=== PATIENT | male | born 1950 | race Caucasian/White ===

== ENCOUNTER 2019-03-06 14:57 | Inpatient (IN) | payer MEDICARE, OTHER ==
[~2019-03-06] VITALS: Ht 177.8 cm; Wt 89.4 kg
[~2019-03-06 14:57] MED LIST: CELEBREX 200 M200 M1 PO; CLEOCIN HCL150 MG PO; GLUCOPHAGE XR500 M1 PO; TELMISARTAN; ZOCOR20 MG PO
[2019-03-06 15:08] VITALS: BP 148/90
[2019-03-06 15:37] LABS: URINE BLOOD 2+ (Negative); URINE CLARITY CLEAR; URINE COLOR YELLOW; URINE GLUCOSE-RANDOM NEGATIVE (Negative); URINE KETONES 1+ (Negative); URINE LEUKOCYTES-REFLEX NEGATIVE (Negative); URINE NITRITE-REFLEX NEGATIVE (Negative); URINE PROTEIN 2+ (Negative); URINE SPECIFIC GRAVITY >= 1.030 (1.005-1.030); URINE UROBILINOGEN 0.2 E.U./dl (0.2-1.0)
[2019-03-06 15:40] LABS: URINE BILIRUBIN 1+ (Negative)
[2019-03-06 15:41] LABS: ICTOTEST (BILI CONFIRMATORY) Negative (Negative)
[2019-03-06 15:44] LABS: MUCUS 0-3 Light strn/LPF (None Seen); SQUAMOUS 0-3 Few /LPF (0-3)
[2019-03-06 15:45] LABS: BACTERIA-REFLEX 1-9 Few /HPF (None Seen); CRYSTALS None Seen /LPF (None Seen); HYALINE CASTS 0-3 Few /LPF (None Seen); URINE RBC 0-2 Rare /HPF (0-2); URINE WBC-REFLEX 0-5 Rare /HPF (0-5)
[2019-03-06 15:50] LABS: HEMATOCRIT 46.6 % (42.0-52.0); MCH 29.5 pg (26.0-34.0); MCHC 34.4 g/dL (28.0-37.0); MCV 85.7 fL (80.0-100.0); MPV 7.8 fl. (7.2-11.1); NUCLEATED RBCS 0 /100WBC; PLATELET COUNT* 219 thou/uL (150-400); RBC 5.44 mil/uL (4.50-6.00); RDW-CV 14.1 % (10.5-14.5); WBC 18.6 thou/uL (4.0-11.0)
[2019-03-06 16:02] LABS: ANION GAP 8 mmol/L (7-16); BUN 10 mg/dL (7-18); CALCIUM 8.8 mg/dL (8.5-10.1); CHLORIDE 95 mmol/L (98-107); CO2 30 mmol/L (21-32); CREATININE 0.9 mg/dL (0.6-1.3); GLUCOSE 112 mg/dL (70-99); POTASSIUM 4.3 mmol/L (3.5-5.1); SODIUM 133 mmol/L (136-145)
[2019-03-06 16:11] LABS: ALBUMIN 3.5 g/dL (3.4-5.0); ALKALINE PHOSPHATASE 68 U/L (46-116); LIPASE 827 U/L (73-393); SGOT 15 U/L (15-37); SGPT 24 U/L (30-65); TOTAL BILIRUBIN 0.8 mg/dL (<0.1-1.0); TOTAL PROTEIN 7.9 g/dL (6.4-8.2); TROPONIN-I LEVEL <0.06 ng/mL (<0.06)
[2019-03-06 16:19] LABS: ABSOLUTE LYMPHOCYTES 0.7 thou/uL (0.8-5.3); ABSOLUTE MONOCYTES 1.9 thou/uL (0.0-1.2)
[2019-03-06 16:20] LABS: PLATELET ESTIMATE ADEQUATE
[2019-03-06 20:00] VITALS: BP 135/92
[2019-03-06 20:18] VITALS: BP 141/92
[2019-03-07 04:11] LABS: HEMATOCRIT 45.6 % (42.0-52.0); HEMOGLOBIN 15.4 gm/dL (14.0-18.0); MCH 29.3 pg (26.0-34.0); MCHC 33.7 g/dL (28.0-37.0); MCV 86.9 fL (80.0-100.0); MPV 8.6 fl. (7.2-11.1); RBC 5.25 mil/uL (4.50-6.00); RDW-CV 14.1 % (10.5-14.5); WBC 20.5 thou/uL (4.0-11.0)
[2019-03-07 04:14] LABS: ALBUMIN 3.1 g/dL (3.4-5.0); ALKALINE PHOSPHATASE 63 U/L (46-116); ANION GAP 7 mmol/L (7-16); BUN 12 mg/dL (7-18); CALCIUM 8.8 mg/dL (8.5-10.1); CHLORIDE 97 mmol/L (98-107); CHOLESTEROL 143 mg/dL (<200); CO2 32 mmol/L (21-32); GLUCOSE 107 mg/dL (70-99); HDL CHOLESTEROL 58 mg/dL (>40); LDL CHOLESTEROL 71 mg/dL (<100); SGOT 11 U/L (15-37); SGPT 20 U/L (30-65); SODIUM 136 mmol/L (136-145); TC:HDL 2.5 Ratio (Not establshd); TOTAL BILIRUBIN 0.6 mg/dL (<0.1-1.0); TOTAL PROTEIN 7.5 g/dL (6.4-8.2); TRIGLYCERIDE 70 mg/dL (<150); VLDL 14 mg/dL (<40)
[2019-03-07 04:28] LABS: SERUM ASSESSMENT CLEAR
--- NOTE | 2019-03-07 06:51 | NUR ---
Admission to floor at 2001. He has pancreatitis. Alert and oriented x 4. His abdomen is distended and he states he hasn't h ad a BM since Sunday or Sunday. He hasn't eaten all these days also and was having nausea. Vitals have been stable and he hasn't had any nausea. He's had pain meds x 3. Labs this am has WBC's elevated Dr Arteaga was notified and she ordered an antibiotic which had penicillin in it which he has an allergy to. Dr Arteaga was notified. He has slept well this shift.
[2019-03-07 07:54] LABS: AMP/METHAMP Negative (Negative); BARBITURATES Negative (Negative); BENZODIAZEPINES Negative (Negative); COCAINE Negative (Negative); METHADONE Negative (Negative); OPIATES POSITIVE (Negative); PCP Negative (Negative); THC Negative (Negative)
[2019-03-07 08:10] VITALS: BP 126/84
--- NOTE | 2019-03-07 10:03 | EKG ---
[place] [address] ELECTROCARDIOGRAM REPORT Name: ANGELIKA PEREYRA Room: [address] ADM IN M.R.#: [id number] Admission: 03/06/19 Attend Phys: Jorge Hernandez Discharge: Date of : 52 Report #: [id number] THIS REPORT FOR: //name// [facility] ED Test Date: 2019-03-06 Test Time: 15:52:28 Pat Name: ANGELIKA PEREYRA Department: Room: [facility] Gender: M Supply Chain Technician: CONNIE : 1950 Requested By: Angie Self Order Number: [id number] MD: Moy Nelson Measurements Intervals [place] Rate: 98 P: 14 PA: 190 QRS: -26 QRSD: 92 T: 9 QT: 361 QTc: 461 Interpretive Statements Sinus rhythm Abnormal R-wave progression, late transition Left ventricular hypertrophy Compared to ECG 10/13/2008 23:44:32 No significant changes Electronically Signed On 03-07-2019 10:03:18 CDT by Moy Nelson [email or web address] <ELECTRONICALLY SIGNED> By: Moy Nelson MD, FAC 03/07/19 1003 1552 1552 Moy Nelson MD, [facility] /EPI
--- NOTE | 2019-03-07 15:19 | NUR ---
SW met with pt and pt to complete initial assessment, introduce self, and SW role. Pt alert, oriented, pleasant. Pt lives at home with . Pt did not anticipate any needs at this time and was concentrating on his pain and pain management at this time. Pt does not have any hx of HH or SNF. SW/CM to continue to follow to assist with safe dc planning.
--- NOTE | 2019-03-07 16:54 | NUR ---
PATIENT ALERT AND ORIENTED X 4. VITAL SIGNS STABLE ON ROOM AIR. UP INDEPENDENTLY IN ROOM. IV PATENT WITH FLUIDS INFUSING. PAIN BEING MANAGED WITH IV MEDICATION. DENIES NAUSEA AT THIS TIME. ADVANCED TO CLEAR LIQUIDS, BUT DOESN'T FEEL UP TO HAVING THEM. HOURLY ROUNDS MAINTAINED THROUGHOUT THE SHIFT. CALL LIGHT WITHIN REACH. NURSING WILL CONTINUE TO MONITOR.
[2019-03-07 21:30] VITALS: BP 135/83
--- NOTE | 2019-03-08 06:07 | NUR ---
PATIENT HAS SLEPT WELL THROUGHOUT THE NIGHT. VSS ON RA. NO C/O PAIN. MEDICATIONS GIVEN ORDERED AND CHARTED. PATIENT REMAINS ON CLEAR LIQUID DIET AND TOLERATING WELL. IV IN RIGHT AC-NS@ 100ML/HR. IV ABT'S GIVEN WITHOUT ANY ADVERSE SIDE EFFECTS NOTED. PATIENT INSTRUCTED TO USE CALL LIGHT WHEN NEEDING ASSISTANCE. HOURLY ROUNDS MADE. WILL CONTINUE WITH PLAN OF CARE AND NURSING TO MONITOR.
[2019-03-08 08:50] VITALS: BP 145/82
--- NOTE | 2019-03-08 19:00 | NUR ---
PATIENT PLEASANT AND COOPERATIVE THRU SHIFT. CONVERSANT. PRESENT PERIODICALLY THRU SHIFT. IV FLUIDS INFUSING W/O DIFF. IV CATH SITE NOTED WNL, +BLOOD RETURN. DRSG CHANGED AFTER SHOWER THIS AFTERNOON. AMBULATING IN HALLS W/ STEADY GAIT. DENIES PAIN, STATES MORE DISCOMFORT THAN PAIN. NO N/V. +BM TODAY AFTER SUPPOSITORY GIVEN. SEE MAR. INFORMATION GIVEN ON LOW FAT DIET FROM [facility]. FLU VACCINE GIVEN, VIS GIVEN TO PATIENT. SEE MAR. CALL LIGHT IN REACH. HRLY ROUNDS DONE. ~TJRN
[2019-03-08 20:00] VITALS: BP 143/81
[2019-03-09 04:35] LABS: HEMATOCRIT 41.5 % (42.0-52.0); MCH 29.1 pg (26.0-34.0); MCHC 33.7 g/dL (28.0-37.0); MCV 86.4 fL (80.0-100.0); MPV 7.5 fl. (7.2-11.1); RBC 4.8 mil/uL (4.50-6.00); RDW-CV 14.1 % (10.5-14.5); WBC 11.3 thou/uL (4.0-11.0)
--- NOTE | 2019-03-09 05:05 | NUR ---
ASSUMED CARE OF PT AFTER REPORT AT 1930. PT A&OX4. VSS. PHYSICAL ASSESSMENT COMPLETED AND CHARTED. PT ON RA. PT UPADLIB BASIM RESTROOM. PT DENIES ANY PAIN OR SOA. PT ABLE TO SLEEP WELL ON BED. CALL LIGHT WITHIN REACH.
[2019-03-09 08:40] VITALS: BP 140/80
[2019-03-09] MEDS ORDERED: NORCO 5-325 TA1 EAC1 PO (09:02)
[2019-03-09] MEDS ORDERED: ZOFRAN ODT4 MG DISSOLVE (09:02)
[2019-03-09 10:02] VITALS: BP 143/81
--- NOTE | 2019-03-09 10:25 | NUR ---
PATIENT ALERT AND ORIENTED THRU SHIFT. DENIES PAIN, N/V. PATIENT STATES READY TO GO HOME. IV CATH DISCONTINUED, CATH TIP INTACT, COTTON BALL/TAPE APPLIED TO SITE. DISCHARGE INSTRUCTIONS REVIEWED, PATIENT STATES VERBALLY OF UNDERSTANDING. COPY OF INSTRUCTIONS AND ORIG RX GIVEN TO PATIENT. PATIENT DRESSES INDEP, BELONGINGS GATHERED W/ PATIENT AND UPON LEAVING . PATIENT ESCORTED TO AWAITING VEHICLE PER PEDIS W/ CUBING MACHINE TENDER AND PRESENT. STEADY GAIT NOTED. DENIES OTHER NURSING NEEDS AT THIS TIME. ~TJRN
[2019-03-09 10:37] VITALS: BP 143/81
--- NOTE | 2019-03-14 11:18 | CON ---
[address] [address] CONSULTATION Name: RODDYANGELIKA L Room: [address]R.#: [id number] Admission: 03/06/19 Attend Phys: Jorge Hernandez Discharge: 03/09/19 Date of : 52 Report #: [id number] THIS REPORT FOR: //name// CC: Stoney Arteaga HISTORY OF PRESENT ILLNESS: This is a pleasant 68-year-old male with past medical history of hypertension, diabetes, hyperlipidemia, who is presenting with acute onset epigastric and right upper quadrant abdominal pain since yesterday. The patient reports the pain began yesterday, located in the epigastrium, sharp, radiates to the back. The patient reports the pain is worse on moving and consumption of food or water. Denies any specific relieving factors apart from pain medication. The patient reports the pain has subsided since his initial presentation to the hospital and he denies similar episodes in the past. He also denies prior episodes of jaundice. PAST MEDICAL HISTORY: Significant for hypertension, hyperlipidemia and diabetes. PAST SURGICAL HISTORY: The patient had back surgery, ankle surgery and surgery for deviated nasal septum. SOCIAL HISTORY: The patient denies smoking, alcohol abuse or drug use. FAMILY HISTORY: No family history of colorectal cancer or Goss related neoplasia. REVIEW OF SYSTEMS: A comprehensive 10-point review of systems is negative except for what was mentioned in the HPI. PHYSICAL EXAMINATION: GENERAL: The patient is alert, awake, oriented x 3. HEENT: Pupils are equal, round, reactive to light and accommodation. Mucous membranes are moist. There is no congestion. LUNGS: Clear to auscultation bilaterally. CARDIOVASCULAR: Rate and rhythm regular. S1, S2 present. ABDOMEN: Soft. There is tenderness in the epigastric and right upper quadrant region to deep palpation. EXTREMITIES: Warm, well perfused. No edema. SKIN: Warm and dry. VITAL SIGNS: Temperature 36.9, pulse rate 82, respirations 18, blood pressure 135/83 and 96% on room air. LABORATORY DATA: Hemoglobin 15.4, hematocrit 45.6, platelet count 223, WBC count 20.5. Sodium 136, potassium 5.0, chloride 97, bicarbonate 32, BUN 12, creatinine 1, total bilirubin 0.6, AST 11, ALT 20, alkaline phosphatase 63, lipase 827[place] [address] CONSULTATION Name: ANGELIKA PEREYRA Fidel Room: [address]#: [id number] Admission: 03/06/19 Attend Phys: Jorge Hernandez Discharge: 03/09/19 Date of : 52 Report #: [id number] IMAGIN. Abdomen and pelvis CT performed on . This demonstrates no bile duct dilation, findings consistent with acute pancreatitis, correlated with pancreatic enzymes. Mild ileus. Incidental horseshoe kidney. 2. Abdominal ultrasound: Mild gallbladder sludge, but no evidence of cholelithiasis, gallbladder wall thickening or biliary ductal dilation. ASSESSMENT AND PLAN: A pleasant 68-year-old male presenting with mild acute pancreatitis, possibly secondary to gallbladder sludge. The patient is able to tolerate a soft diet now. His pain is under better control. I would recommend advancing diet as tolerated. I would consult Surgery for interval cholecystectomy. Thank you for this consultation. <ELECTRONICALLY SIGNED> By: Charly Martinez MD 03/14/19 1118 1105 2043Charly Martinez MD /nt
== END 2019-03-09 10:25 | disposition home or self-care (01) | DRG 439 ==
LOC: M.ERS 14:57 → M.ORTHSURG 18:37 → M.TBA-ER 18:37 → M.ORTHSURG 20:01
PROVIDERS: Nurse Practitioner Family; ADMIT Family Medicine
DX: K85.90 Acute pancreatitis without necrosis or infection, unspecified (principal); R65.10 Systemic inflammatory response syndrome (SIRS) of non-infectious origin without acute organ dysfunction; E78.5 Hyperlipidemia, unspecified; K82.8 Other specified diseases of gallbladder; M19.90 Unspecified osteoarthritis, unspecified site; E78.00 Pure hypercholesterolemia, unspecified; E11.9 Type 2 diabetes mellitus without complications; Z79.84 Long term (current) use of oral hypoglycemic drugs; Z88.0 Allergy status to penicillin; Z88.8 Allergy status to other drugs, medicaments and biological substances; Z98.41 Cataract extraction status, right eye; Z98.42 Cataract extraction status, left eye

== ENCOUNTER 2019-04-02 10:20 | Inpatient (IN) | payer MEDICARE, OTHER ==
[~2019-04-02] VITALS: Ht 182.9 cm; Wt 85.9 kg
[~2019-04-02 10:20] MED LIST changes: +NORCO 5-325 TA1 EAC1 PO; +ZOFRAN ODT4 MG DISSOLVE
[2019-04-02 10:27] VITALS: BP 130/94
[2019-04-02 11:26] LABS: ABSOLUTE BASOPHILS 0.1 thou/uL (0.0-0.2); ABSOLUTE EOSINOPHILS 0.2 thou/uL (0.0-0.7); ABSOLUTE LYMPHOCYTES 1.1 thou/uL (0.8-5.3); ABSOLUTE MONOCYTES 0.9 thou/uL (0.0-1.2); BASOPHILS 0.6 %; EOSINOPHILS 1.4 %; HEMOGLOBIN 15.3 gm/dL (14.0-18.0); LYMPHOCYTES 9.9 %; MCH 29.6 pg (26.0-34.0); MCHC 34.1 g/dL (28.0-37.0); MCV 86.7 fL (80.0-100.0); MONOCYTES 8.3 %; MPV 8.6 fl. (7.2-11.1); NUCLEATED RBCS 0 /100WBC; PLATELET COUNT* 146 thou/uL (150-400); POLYS 79.8 %; RBC 5.19 mil/uL (4.50-6.00); RDW-CV 14.4 % (10.5-14.5); WBC 11.3 thou/uL (4.0-11.0)
[2019-04-02 11:34] LABS: CALCIUM 9.6 mg/dL (8.5-10.1); CREATININE 0.9 mg/dL (0.6-1.3); POTASSIUM 4.3 mmol/L (3.5-5.1)
[2019-04-02 11:39] LABS: ALBUMIN 3.7 g/dL (3.4-5.0); TOTAL BILIRUBIN 1.1 mg/dL (<0.1-1.0); TOTAL PROTEIN 7.9 g/dL (6.4-8.2)
[2019-04-02 12:26] LABS: URINE BILIRUBIN NEGATIVE (Negative); URINE BLOOD TRACE (Negative); URINE CLARITY CLEAR; URINE COLOR YELLOW; URINE GLUCOSE-RANDOM NEGATIVE (Negative); URINE KETONES 1+ (Negative); URINE LEUKOCYTES-REFLEX NEGATIVE (Negative); URINE NITRITE-REFLEX NEGATIVE (Negative); URINE PROTEIN NEGATIVE (Negative); URINE SPECIFIC GRAVITY <= 1.005 (1.005-1.030); URINE UROBILINOGEN 0.2 E.U./dl (0.2-1.0)
--- NOTE | 2019-04-02 15:13 | EKG ---
[place] [address] ELECTROCARDIOGRAM REPORT Name: RODDYLATONIA COMERBILLY Parra Room: [place] [address] ADM IN .R.#: [id number] Admission: 04/02/19 Attend Phys: Jocelynn Calloway Discharge: Date of : 52 Report #: [id number] THIS REPORT FOR: //name// [facility] ED Test Date: 2019-04-02 Test Time: 11:39:11 Pat Name: ANGELIKA PEREYRA Department: Room: [facility] Gender: M Svp Research And Strategic Analysis: DEREK : 1950 Requested By: Negrito Paula Order Number: [id number] MD: Ravi More Measurements Intervals [place] Rate: 82 P: 2 NE: 190 QRS: -26 QRSD: 93 T: 1 QT: 379 QTc: 443 Interpretive Statements Sinus rhythm Low voltage, precordial leads Abnormal R-wave progression, early transition Left ventricular hypertrophy Compared to ECG 03/06/2019 15:52:28 Low QRS voltage now present Electronically Signed On 04-02-2019 15:13:22 CDT by Ravi More [email or web address] <ELECTRONICALLY SIGNED> By: Ravi More MD, FAC 04/02/19 1513 1139 1139 Ravi More MD, [facility] /EPI
[2019-04-02 18:32] VITALS: BP 144/87
[2019-04-02 19:32] VITALS: BP 155/85
[2019-04-03 07:45] VITALS: BP 139/85
[2019-04-03 10:42] LABS: HEMATOCRIT 43.2 % (42.0-52.0); HEMOGLOBIN 14.7 gm/dL (14.0-18.0); MCH 29.6 pg (26.0-34.0); MCHC 33.9 g/dL (28.0-37.0); MCV 87.2 fL (80.0-100.0); MPV 8.4 fl. (7.2-11.1); RBC 4.96 mil/uL (4.50-6.00); RDW-CV 14.6 % (10.5-14.5); WBC 8.1 thou/uL (4.0-11.0)
[2019-04-03 11:15] LABS: ALBUMIN 3.3 g/dL (3.4-5.0); CALCIUM 8.6 mg/dL (8.5-10.1); CREATININE 0.8 mg/dL (0.6-1.3); MAGNESIUM 2.4 mg/dL (1.8-2.4); PHOSPHORUS* 2.5 mg/dL (2.5-4.9); POTASSIUM 4.2 mmol/L (3.5-5.1); TOTAL BILIRUBIN 0.7 mg/dL (<0.1-1.0); TOTAL PROTEIN 7.4 g/dL (6.4-8.2)
[2019-04-03 12:48] VITALS: BP 139/85
[2019-04-03 14:10] VITALS: BP 139/85
== END 2019-04-03 13:55 | disposition home or self-care (01) | DRG 391 ==
LOC: M.ERS 10:20 → M.3W 12:57 → M.TBA-ER 12:57 → M.3W 18:55
PROVIDERS: Family Medicine; ADMIT Internal Medicine
DX: K59.00 Constipation, unspecified (principal); K85.90 Acute pancreatitis without necrosis or infection, unspecified; E78.00 Pure hypercholesterolemia, unspecified; E11.9 Type 2 diabetes mellitus without complications; Z98.42 Cataract extraction status, left eye; Z98.41 Cataract extraction status, right eye; Z90.49 Acquired absence of other specified parts of digestive tract; Z88.0 Allergy status to penicillin; Z88.8 Allergy status to other drugs, medicaments and biological substances

== ENCOUNTER → 2020-05-10 | Outpatient (CLI) | payer MEDICARE ==
[~2020-05-10] MED LIST changes: +COLACE100 MG PO; +FLOMAX0.4 MG PO; +LISINOPRIL5 MG PO; +OMEPRAZOLE 20 M20 M1 PO; +ROXICODONE5 MG PO
== END ==
LOC: M.LAB 08:42
PROVIDERS: ATTEND Surgery
DX: Z01.812 Encounter for preprocedural laboratory examination (principal); Z20.828 Contact with and (suspected) exposure to other viral communicable diseases

== ENCOUNTER → 2020-05-13 | Day surgery (SDC) | payer MEDICARE ==
[2020-05-13 06:25] LABS: HEMATOCRIT 50.4 % (42.0-52.0); HEMOGLOBIN 16.8 gm/dL (14.0-18.0); MCH 29.3 pg (26.0-34.0); MCHC 33.4 g/dL (28.0-37.0); MCV 87.7 fL (80.0-100.0); MPV 7.8 fl. (7.2-11.1); RBC 5.75 mil/uL (4.50-6.00); RDW-CV 13.8 % (10.5-14.5); WBC 6.2 thou/uL (4.0-11.0)
[2020-05-13 06:28] LABS: CALCIUM 8.8 mg/dL (8.5-10.1); CREATININE 1.1 mg/dL (0.6-1.3); POTASSIUM 4.7 mmol/L (3.5-5.1)
--- NOTE | 2020-05-13 11:22 | OP ---
[address] [address] OPERATIVE REPORT Name: ANGELIKA PEREYRA Room: [facility]#: [id number] Admission: 05/13/20 Attend Phys: Shalini García DO Discharge: Date of : 52 Report #: [id number] THIS REPORT FOR: //name// cc: Stoney Cook MD, Arthur MD ~ CC: Stoney García DATE OF SERVICE: 05/13/2020 PREPROCEDURE DIAGNOSIS: Left inguinal hernia. POSTPROCEDURE DIAGNOSIS: Left indirect inguinal hernia containing omentum and a cord lipoma. SURGEON: Shalini García DO COSURGEON: Jose Martin Multani, PGY-1. MILK INSPECTOR: Irma Crespo, MS4. PROCEDURE PERFORMED: Left inguinal hernia repair with mesh. ANESTHESIA: LMA and local. ESTIMATED BLOOD LOSS: 5 mL. DRAINS: None. SPECIMENS: Hernia sac with cord lipoma. COMPLICATIONS: None. CONDITION: Stable. DISPOSITION: PACU to home. HISTORY OF PRESENT ILLNESS: The patient is a very pleasant 70-year-old gentleman who presented to my office with complaint of a bulge and pain in his left groin. On physical exam, he had an obvious left inguinal hernia. He was then consented for repair with mesh. Risks discussed included bleeding, infection, pain, scar formation, injury to bowel or bladder, recurrence of the hernia, mesh complications, inability to void, need for further surgery and risks of general anesthesia. The patient understood these risks [place] [address] OPERATIVE REPORT Name: ANGELIKA PEREYRA Room: [facility]#: [id number] Admission: 05/13/20 Attend Phys: Shalini García DO Discharge: Date of : 52 Report #: [id number] DESCRIPTION OF PROCEDURE: The patient was brought to the operating room. He was laid supine on the operating room table. SCDs were placed on bilateral lower extremities. Ancef was given in the perioperative period. General LMA anesthesia was induced by Anesthesia without difficulty. Left groin was prepped and draped in standard sterile fashion. Timeout was performed to verify patient and procedure. I began by marking out the left ASIS and the left pubic tubercle. An incision was marked out between these 2 structures. A 10 mL of 0.5% Marcaine were injected in the area of the planned incision. Incision was made with a 10 blade. Cautery was used for hemostasis. Then, using a combination of blunt and cautery dissection, we dissected down until the external abdominal oblique fascia was identified. Two small veins were encountered during our dissection and were doubly clamped and ligated with a 2-0 silk suture. Weitlaner retractor was placed within the wound. A very large obvious bulge was noted through the external ring. This appeared to be omentum. The external abdominal oblique fascia was elevated between 2 Beth clamps and was gently incised using Metzenbaums, taking care to avoid any underlying structures. Gentle finger blunt dissection was then used on the inferior aspect of the external abdominal oblique fascia, pushing the cord structures towards the middle of the inguinal canal, continued moving in this direction until the pubic tubercle was reached. Blunt dissection on the pubic tubercle, then elevated the cord structures and the hernia. Rose drain was passed under the cord structures and hernia and was placed under gentle traction. Very careful exploration was then taken of the contents of the inguinal canal. We initially identified a fairly large cord lipoma and hernia sac. This was easily dissected free from the cord structures and was traced back to the internal ring. It was quite large and was nonreducible. It was then ligated with a 2-0 silk suture, dissected free using Metzenbaums and handed off for specimen. The cremasteric fibers were then gently stripped from the cord structures and the hernia, moving from the external ring to the internal ring. At that point, we then identified a very large hernia sac running along with the cord structures, which appeared to be a large portion of the patient's omentum. This was carefully freed from the cord structures until the entirety of the hernia sac was from the cord structures. A Rose drain was adjusted and the cord structures were then protected while we continued our dissection. Any fibers holding the hernia sac to the cord structures or the floor of the canal were stripped away until we reached the internal ring. This was clearly an indirect hernia. The defect was quite large. The amount of omentum was at least the size of a baseball, if not larger, but with gentle pressure, we were able to reduce the omentum back into the abdomen. Any remaining adhesions or loose pieces of tissue were stripped away until the internal ring was completely clear. The ProGrip mesh was then brought onto the field and a plug was fashioned. It was then easily deployed into the defect, taking care to make sure that the large portion of the omentum remained completely reduced. The plug provided excellent coverage of the hernia defect and no further signs of any hernia were identified during the remainder of our work. The remainder of the ProGrip mesh was then brought onto the field and an onlay mesh was fashioned. This was initially deployed at the [address] [place] [address] OPERATIVE REPORT Name: ANGELIKA PEREYRA Room: [facility]#: [id number] Admission: 05/13/20 Attend Phys: Shalini García DO Discharge: Date of : 52 Report #: [id number] tubercle, run along the floor of the inguinal canal and then the 2 legs were brought around the internal ring and crossed over our previously deployed mesh. This provided excellent coverage of the floor. The onlay mesh was then sutured into place circumferentially starting at the pubic tubercle with 2 stitches placed medially and laterally and 2 stitches placed where the legs of the mesh crossed. Hemostasis was assured. A 10 mL of 0.5% Marcaine were injected at the pubic tubercle. [place] drain was removed and we verified that the cord structures appeared to be in good position. The external abdominal oblique fascia was then closed with a running 3-0 Vicryl. Wound was then closed in a layered fashion using deep and superficial stitches of 3-0 Vicryl in inverted interrupted fashion. Skin wound was closed with running 4-0 Monocryl. The final 10 mL of 0.5% Marcaine were injected in a block type fashion, one fingerbreadth in front of the ASIS. Wound was then cleansed and covered with Dermabond. The patient was then allowed to awake from anesthesia, was extubated and transported to the recovery room with no further difficulties. Counts were correct x 2 at the conclusion of the case. Binder was placed in the operating room. <ELECTRONICALLY SIGNED> By: Shalini García DO 05/13/20 1122 0959 1026Cjanki García DO /nt
--- NOTE | 2020-05-13 16:40 | EKG ---
[place] [address] ELECTROCARDIOGRAM REPORT Name: ANGELIKA PEREYRA Room: [facility]#: [id number] Admission: 05/13/20 Attend Phys: Shalini García, Discharge: Date of : 52 Date of Service: 05/13/20 0645 Report #: [id number] THIS REPORT FOR: //name// [facility] Test Date: 2020-05-13 Test Time: 06:45:47 Pat Name: ANGELIKA PEREYRA Department: Room: Gender: Supervisor Sleeping Bag Department: [facility] : 1950 Requested By: Shalini García Order Number: [id number] Emelina MD: Ravi More Measurements Intervals [place] Rate: 79 P: 5 FL: 186 QRS: -29 QRSD: 92 T: 19 QT: 375 QTc: 430 Interpretive Statements Sinus rhythm Left ventricular hypertrophy Compared to ECG 04/02/2019 11:39:11 No significant changes Electronically Signed On 05-13-2020 16:40:37 TRUCK HOP by Ravi More [email or web address] <ELECTRONICALLY SIGNED> By: Ravi More MD, [facility] 05/13/20 1640 Ravi More MD, FACC /EPI
--- NOTE | 2020-05-18 17:07 | PATH ---
[facility] [address] [place] [address] PATHOLOGY RPT PROCEDURE Name: ANGELIKA PEREYRA Room: [facility]#: [id number] Admission: 05/13/20 Date of : 52 Discharge: Report #: [id number] Path Case #: [id number] [facility] Accession Number: [id number] . 01 Material submitted: . hernia - LEFT HERNIA SAC WITH CORD LIPOMA. Modifiers: left . 01 Clinical history: . INGUINAL HERNIA, LEFT . 02 Diagnosis: Left hernia sac and cord lipoma: - Mature fat consistent with "cord lipoma". (CARLO:pit 05/18/2020) QTP 05/18/2020 1051 Local . 02 Electronically signed: . Seng Pena MD, Pathologist NPI- [id number] . 01 Gross description: . Received in formalin labeled "Angelika Pereyra, left hernia sac and cord lipoma" is a nickerson-yellow lobulated soft tissue mass measuring 6.5 x 4.5 x 4.3 cm. The external surface is inked black. The specimen is sectioned to reveal a nickerson-yellow homogeneous cut surface without hemorrhage or necrosis. Package Handler sections are submitted in cassettes A1-A3. (SK; 05/15/2020) . Upon second evaluation, no hernia sac is identified within the container. ([facility]; 05/17/2020) SY/[facility] 05/18/2020 1102 Local . 02 Pathologist provided ICD-10: D17.6 . 02 CPT . 141131 Specimen Comment: A courtesy copy of this report has been sent to [phone] Specimen Comment: [phone] Specimen Comment: Report sent to / DR OGLESBY Performed at: [address] [facility] [address] [id number] MD Jos Fernandez MD Phone: [phone] Performed at: [address] [id number] [place] [address] PATHOLOGY RPT PROCEDURE Name: ANGELIKA PEREYRA Room: [facility]#: [id number] Admission: 05/13/20 Date of : 52 Discharge: Report #: [id number] Path Case #: [id number] MD Seng Pena MD Phone: [phone]
== END | disposition home or self-care (01) ==
LOC: M.SUR 05:49
PROVIDERS: ATTEND Surgery
DX: K40.90 Unilateral inguinal hernia, without obstruction or gangrene, not specified as recurrent (principal); D17.6 Benign lipomatous neoplasm of spermatic cord; R10.9 Unspecified abdominal pain; E11.9 Type 2 diabetes mellitus without complications; E78.00 Pure hypercholesterolemia, unspecified; Z98.890 Other specified postprocedural states; Z79.899 Other long term (current) drug therapy; Z88.0 Allergy status to penicillin; Z90.49 Acquired absence of other specified parts of digestive tract; Z98.41 Cataract extraction status, right eye; Z98.42 Cataract extraction status, left eye

== ENCOUNTER 2020-06-07 11:11 | Inpatient (IN) | payer MEDICARE ==
[~2020-06-07] VITALS: Ht 177.8 cm; Wt 91.9 kg
[2020-06-07 11:20] VITALS: BP 147/93
[2020-06-07 11:53] LABS: ABSOLUTE EOSINOPHILS 0.2 thou/uL (0.0-0.7); ABSOLUTE LYMPHOCYTES 0.6 thou/uL (0.8-5.3); ABSOLUTE MONOCYTES 0.5 thou/uL (0.0-1.2); ABSOLUTE NEUTROPHILS 6.6 thou/uL (1.6-8.1); BASOPHILS 0.2 %; EOSINOPHILS 2.7 %; HEMOGLOBIN 15.1 gm/dL (14.0-18.0); LYMPHOCYTES 7.3 %; MCHC 33.6 g/dL (28.0-37.0); MCV 86.3 fL (80.0-100.0); MONOCYTES 5.8 %; MPV 8.1 fl. (7.2-11.1); NUCLEATED RBCS 0 /100WBC; PLATELET COUNT* 163 thou/uL (150-400); RBC 5.21 mil/uL (4.50-6.00); RDW-CV 14.2 % (10.5-14.5); WBC 7.8 thou/uL (4.0-11.0)
[2020-06-07 12:06] LABS: APTT 28.8 Seconds (25.0-31.3); PROTIME 10.9 Seconds (9.20-11.50)
[2020-06-07 12:16] LABS: CALCIUM 8.7 mg/dL (8.5-10.1); CREATININE 1.1 mg/dL (0.6-1.3)
[2020-06-07 12:21] LABS: TOTAL BILIRUBIN 0.9 mg/dL (<0.1-1.0); TOTAL PROTEIN 7.6 g/dL (6.4-8.2)
--- NOTE | 2020-06-07 15:15 | EKG ---
[place] [address] ELECTROCARDIOGRAM REPORT Name: RODDYANGELIKA L Room: [place] [address] ADM IN [facility].#: [id number] Admission: 06/07/20 Attend Phys: Surinder Holland Discharge: Date of : 52 Date of Service: 06/07/20 1151 Report #: [id number] THIS REPORT FOR: //name// [facility] ED Test Date: 2020-06-07 Test Time: 11:51:49 Pat Name: ANGELIKA PEREYRA Department: Room: [facility] Gender: M Registered Nurses: KYLIE : 1950 Requested By: Negrito Paula Order Number: [id number] MD: Ravi More Measurements Intervals [place] Rate: 103 P: 6 FL: 174 QRS: -24 QRSD: 89 T: 24 QT: 341 QTc: 447 Interpretive Statements Sinus tachycardia Probable left atrial enlargement Abnormal R-wave progression, late transition Left ventricular hypertrophy Baseline wander in lead(s) V1,V4 Compared to ECG 05/13/2020 06:45:47 Sinus rate has increased Electronically Signed On 06-07-2020 15:15:33 STUFFED CASING TIER by Ravi More [email or web address] <ELECTRONICALLY SIGNED> By: Ravi More MD, [facility] 06/07/20 1515 1151 1151 Ravi More MD, [facility] /EPI
[2020-06-07 18:00] VITALS: BP 140/88
[2020-06-07 19:50] VITALS: BP 135/90
[2020-06-07 20:00] VITALS: BP 145/82
[2020-06-08] VITALS: BP 124/63; BP 138/80
[2020-06-08 08:00] VITALS: BP 150/81
[2020-06-08 17:00] VITALS: BP 134/67
[2020-06-08 20:12] VITALS: BP 116/57
[2020-06-09 08:00] VITALS: BP 132/78
[2020-06-09 11:53] VITALS: BP 126/77
[2020-06-09 20:00] VITALS: BP 138/84
[2020-06-10] MEDS ORDERED: CEFDINIR300 MG PO (08:34)
[2020-06-10] MEDS ORDERED: PREDNISONE 10 M10 MG PO (08:34)
[2020-06-10 08:40] VITALS: BP 148/77
[2020-06-10 13:16] VITALS: BP 148/77
== END 2020-06-10 14:48 | disposition home or self-care (01) | DRG 177 ==
LOC: M.ERS 11:11 → M.ORTHSURG 13:51 → M.TBA-ER 13:51 → M.ORTHSURG 19:50
PROVIDERS: Family Medicine; ADMIT Internal Medicine; ATTEND Internal Medicine
PROC: XW033E5 Introduction of Remdesivir Anti-infective into Peripheral Vein, Percutaneous Approach, New Technology Group 5 (ICD-10-PCS; principal; 2020-06-07)
DX: U07.1 COVID-19 (principal); J12.89 Other viral pneumonia; J96.01 Acute respiratory failure with hypoxia; J15.6 Pneumonia due to other Gram-negative bacteria; E78.00 Pure hypercholesterolemia, unspecified; E11.9 Type 2 diabetes mellitus without complications; Z98.42 Cataract extraction status, left eye; Z98.41 Cataract extraction status, right eye; Z86.19 Personal history of other infectious and parasitic diseases; Z90.49 Acquired absence of other specified parts of digestive tract; Z88.0 Allergy status to penicillin; Z79.899 Other long term (current) drug therapy

== ENCOUNTER 2020-06-13 11:17 | Inpatient (IN) | payer MEDICARE ==
[~2020-06-13] VITALS: Ht 177.8 cm; Wt 93.4 kg
[~2020-06-13 11:17] MED LIST changes: +CEFDINIR300 MG PO; +PREDNISONE 10 M10 MG PO
[2020-06-13 11:38] VITALS: BP 143/94
[2020-06-13 12:33] LABS: HEMATOCRIT 44.1 % (42.0-52.0); HEMOGLOBIN 14.7 gm/dL (14.0-18.0); MCH 28.9 pg (26.0-34.0); MCHC 33.3 g/dL (28.0-37.0); MPV 7.4 fl. (7.2-11.1); NUCLEATED RBCS 0 /100WBC; PLATELET COUNT* 88 thou/uL (150-400); RBC 5.07 mil/uL (4.50-6.00); RDW-CV 14.3 % (10.5-14.5); WBC 10.2 thou/uL (4.0-11.0)
[2020-06-13 12:42] LABS: CALCIUM 7.8 mg/dL (8.5-10.1); POTASSIUM 4.1 mmol/L (3.5-5.1)
[2020-06-13 12:45] LABS: APTT 23.9 Seconds (25.0-31.3); INR 1.1; PROTIME 11.3 Seconds (9.20-11.50)
[2020-06-13 12:52] LABS: ABSOLUTE EOSINOPHILS 0.2 thou/uL (0.0-0.7); ABSOLUTE LYMPHOCYTES 0.2 thou/uL (0.8-5.3); ABSOLUTE MONOCYTES 0.5 thou/uL (0.0-1.2); ABSOLUTE NEUTROPHILS 9.3 thou/uL (1.6-8.1); PLATELET ESTIMATE ADEQUATE
[2020-06-13 12:53] LABS: ALBUMIN 2.4 g/dL (3.4-5.0); TOTAL BILIRUBIN 0.3 mg/dL (<0.1-1.0); TOTAL PROTEIN 6.8 g/dL (6.4-8.2)
[2020-06-13 18:21] VITALS: BP 180/99
[2020-06-13] MEDS ORDERED: TYLENOL PM EX-1 EACH PO (19:58)
[2020-06-13 20:00] VITALS: BP 176/97
[2020-06-14] VITALS: BP 132/78
[2020-06-14 04:00] VITALS: BP 123/80
--- NOTE | 2020-06-14 04:26 | NUR ---
Patient arrived in room at approx 2110. RN day die engraving supervisor settled patient and got his vital signs completed. RN visited with patient and answered all questions about stay, plan of care. HS medications given as ordered and patient request. No complaints of pain or discomfort noted. carry out clerk assessment completed as charted. Hourly rounding completed.
--- NOTE | 2020-06-14 09:23 | EKG ---
[place] [address] ELECTROCARDIOGRAM REPORT Name: RODDYANGELIKA L Room: [address] IN ..#: [id number] Admission: 06/13/20 Attend Phys: Viviana Quiroz, Discharge: Date of : 52 Date of Service: 06/13/20 1149 Report #: [id number] THIS REPORT FOR: //name// [facility] ED Test Date: 2020-06-13 Test Time: 11:49:53 Pat Name: ANGELIKA PEREYRA Department: Room: [facility] Gender: M Communications Administrator: CCD : 1950 Requested By: Owen Plascencia Order Number: [id number] MD: Moy Nelson Measurements Intervals [place] Rate: 89 P: 18 DE: 154 QRS: -23 QRSD: 95 T: 23 QT: 383 QTc: 467 Interpretive Statements Sinus rhythm Multiple ventricular premature complexes Consider left atrial enlargement Abnormal R-wave progression, early transition Left ventricular hypertrophy Baseline wander in lead(s) V5 Compared to ECG 06/07/2020 11:51:49 Ventricular premature complex(es) now present Sinus tachycardia no longer present Electronically Signed On 06-14-2020 9:22:54 MANAGER INTERMEDIATE by Moy Nelson [email or web address] <ELECTRONICALLY SIGNED> By: Moy Nelson MD, [facility] 06/14/20 0922 1149 1149 Moy Nelson MD, [facility] /EPI
[2020-06-14 10:00] VITALS: BP 150/87
--- NOTE | 2020-06-14 10:08 | NUR ---
CM SPOKE TO THE PT VIA THE HOSPITAL ROOM PHONE TO DISCUSS CM ASSESSMENT THE PT IS CURRENTLY UNDER ENHANCED PRECAUTIONS FOR COVID 19. PT IS A&O, NORMALLY INDEPENDENT WITH ADL'S. PT RESIDES AT HOME WITH SPOUSE. PT USES 0 DME. PT IS CURRENTLY ON 6L O2, BUT DOES NOT USE OXYGEN AT HOME. PT HAS 0 HX OF HH OR SNF. CM WILL REMAIN AVAILABLE TO ASSIST AND DMITRIY WITH D/C PLANNING.
[2020-06-14 15:00] VITALS: BP 112/70
[2020-06-14 18:05] VITALS: BP 148/87
--- NOTE | 2020-06-14 18:45 | NUR ---
RECEIVED REPORT. ASSUMED CARE OF PT AROUND 0730. AM ASSESSMENT AND VITALS COMPLETED CHARTED. MEDS PER EMAR. PT NOW M/S STATUS AND ISOLATION DISCONTINUED PER DR CASON. PT ABLE TO HAVE VISITORS NOW. TOLERATING DIET. ON 5L PER NC. VISITED THIS AFTERNOON. PT ABLE TO TAKE A SHOWER. PT HOPEFUL TO GO HOME TOMMOROW. CALL LIGHT IS WITHIN REACH. HOURLY ROUNDING PERFORMED. LOW FALL RISK PRECAUTIONS IN PLACE.
--- NOTE | 2020-06-15 01:25 | NUR ---
ASSUMED CARE OF PT AT 1900. VSSDenise PEREZ. NO COMPLAINTS OF PAIN. PTS ON 5 LITERS OF O2. PT IS UP AD MERLYN. PT IS IN SINUS RYTHM ON THE TELEMETRY. PT IS RESTING COMFORTABLY IN BED. RESPIRATIONS ARE EVEN AND NONLABORED. WILL CONTINUE TO MONITOR PT.
[2020-06-15 05:14] LABS: HEMATOCRIT 44.6 % (42.0-52.0); HEMOGLOBIN 14.7 gm/dL (14.0-18.0); MCH 28.4 pg (26.0-34.0); MPV 7.8 fl. (7.2-11.1); RBC 5.19 mil/uL (4.50-6.00); RDW-CV 14.5 % (10.5-14.5); WBC 11.3 thou/uL (4.0-11.0)
[2020-06-15 05:39] LABS: ALBUMIN 2.5 g/dL (3.4-5.0); CALCIUM 8.4 mg/dL (8.5-10.1); CREATININE 0.9 mg/dL (0.6-1.3); MAGNESIUM 2.5 mg/dL (1.8-2.4); POTASSIUM 5.1 mmol/L (3.5-5.1); TOTAL BILIRUBIN 0.5 mg/dL (<0.1-1.0); TOTAL PROTEIN 7.1 g/dL (6.4-8.2)
[2020-06-15 08:00] VITALS: BP 158/86
--- NOTE | 2020-06-15 15:35 | NUR ---
RECEIVED REPORT. ASSUMED CARE OF PT AROUND 0730. AM ASSESSMENT AND VITALS COMPLETED CHARTED. MEDS PER EMAR. UNABLE TO WEAN O2, PT HOLDING AT 5L PER NC. INCENTIVE SPIROMETER 10 TIMES AN HOUR, PT DOING WELL WITH IT. UP TO BEDSIDE CHAIR FOR MOST OF SHIFT. IN TO VISIT, ISOLATION WAS DC'D YESTERDAY. PT DENIED PAIN OR DISCOMFORT. PT MADE M/S STATUS. PT TRANSFERED TO ROOM 225, REPORT GIVEN TO DARON SMITH. PT WENT UP TO ROOM 225 IN WITH NURSING STAFF AND ALL BELONGINGS. CAD ENGINEER REMOVED.
[2020-06-15 16:45] VITALS: BP 136/77
--- NOTE | 2020-06-15 18:46 | NUR ---
PT ARRIVED TO FLOOR TRANSFER ABOUT 1530. PT STABLE. M/S STATUS. AD MERLYN. 5LO2.
[2020-06-15 20:00] VITALS: BP 151/99
[2020-06-16] VITALS: BP 127/82
[2020-06-16 04:42] LABS: HEMATOCRIT 43.6 % (42.0-52.0); HEMOGLOBIN 14.3 gm/dL (14.0-18.0); MCH 28.3 pg (26.0-34.0); MCHC 32.9 g/dL (28.0-37.0); RBC 5.06 mil/uL (4.50-6.00); RDW-CV 14.6 % (10.5-14.5); WBC 14.2 thou/uL (4.0-11.0)
[2020-06-16 04:58] LABS: CALCIUM 8.5 mg/dL (8.5-10.1); POTASSIUM 4.8 mmol/L (3.5-5.1)
[2020-06-16 08:00] VITALS: BP 132/94
--- NOTE | 2020-06-16 11:12 | NUR ---
CM INFORMED DURING PRIME ROUNDING OF THE PLAN OF CARE FOR THE PT. PT TRANSFERED FROM COVID UNIT. PT PCR RETURNED COVID NEGATIVE. PLAN FOR PT TO REMAIN INPT FOR 2 MORE DAYS. NO CM D/C PLANNING NEEDS ANTICIPATED. CM WILL REMAIN AVAILABLE TO ASSIST AND FOLLOW NEEDED.
--- NOTE | 2020-06-16 16:30 | NUR ---
PT IS ALERT AND ORIENTED UP AD MERLYN ON 4L NC VERY CONGESTED NOT SURE WHAT SPUTUM LOOKS LIKE WHEN COUGHS IT UP COUGH MEDS STARTED LS CLEAR AND DIMINISHED BM SUNDAY PER PT IV ABT GIVEN CAME TO VISIT NO QUESTIONS OR CONCERNS AT THIS TIME M/S STATUS
[2020-06-16 17:28] VITALS: BP 139/84
--- NOTE | 2020-06-16 17:30 | NUR ---
ASSUMED CARE OF PATIENT AT THIS TIME. REPORT RECEIVED FROM DEARBORN.
[2020-06-16 20:00] VITALS: BP 139/79
[2020-06-17 04:21] LABS: HEMATOCRIT 43.9 % (42.0-52.0); HEMOGLOBIN 14.5 gm/dL (14.0-18.0); MCH 28.5 pg (26.0-34.0); MCHC 32.9 g/dL (28.0-37.0); MCV 86.6 fL (80.0-100.0); MPV 7.8 fl. (7.2-11.1); RBC 5.07 mil/uL (4.50-6.00); RDW-CV 14.3 % (10.5-14.5); WBC 11.2 thou/uL (4.0-11.0)
[2020-06-17 04:39] LABS: CALCIUM 8.2 mg/dL (8.5-10.1); CREATININE 0.9 mg/dL (0.6-1.3); POTASSIUM 4.7 mmol/L (3.5-5.1)
--- NOTE | 2020-06-17 05:31 | NUR ---
ASSUMED PT'S CARE BEGINNING OF THIS PM SHIFT. ALERT AND ORIENTED. VSS ON 3L NC. MEDS GIVEN PER EMAR. PT SLEPT WELL THIS SHIFT. AMBULATES INDEPENDENTLY. DENIES PAIN THIS SHIFT. CALL LIGHT WITHIN REACH. HOURLY ROUNDINGS MADE. WILL CONTINUE TO MONITOR.
[2020-06-17 07:50] VITALS: BP 133/77
[2020-06-17] MEDS ORDERED: ROBITUSSIN AC Liquid PO (09:22)
[2020-06-17] MEDS ORDERED: BENZONATATE100 MG PO (09:22)
[2020-06-17] MEDS ORDERED: MUCINEX600 MG PO (09:22)
[2020-06-17 12:13] VITALS: BP 133/77
--- NOTE | 2020-06-17 12:26 | NUR ---
PER R.T.SATURATIONS, PT.CAN BE ON ROOM AIR AT REST. NEEDS 3L/NC WITH ACTIVITY. CM FAXED FACE SHEET,ORDER,SATURATIONS AND PROGRESS NOTE FROM TODAY TO DEVON/PRINCESS. PT.DID NOT HAVE A PREFERENCE OF O2 PROVIDERS. SHE WILL DELIVER TANK TO HOSPITAL. TOLD PT.TO CALL NUMBER ON TANK WHEN HE ARRIVES HOME FOR HOME DELIVERY OF CONCENTRATOR. PT.ASKED IF SH SHOULD WEAR O2 WHILE SLEEPING. TOLD HIM HE COULD IF IT MADE HIM FEEL BETTER. HE SAID HE THOUGHT HE WOULD. EXPLAINED IT MAY TAKE ABOUT AN HR.FOR O2 TANK TO ARRIVE TO HOSPITAL.
[2020-06-17 12:33] VITALS: BP 133/77
--- NOTE | 2020-06-17 15:15 | NUR ---
PATIENT DISCHARGED TO HOME WITH HOME OXYGEN. TANK DELIVERED BY PRINCESS. EDUCATION GIVEN ON HOME OXYGEN. DISCHARGE PAPERS REVIEWED AND SIGNED. PRESCRIPTION AND INFORMATION SHEETS GIVEN. IV REMOVED. PATIENT DENIES ANY FURTHER NEEDS. PATIENT TAKEN BY WHEELCHAIR TO EXIT. LEFT WITH .
[2020-06-17 15:34] VITALS: BP 133/77
== END 2020-06-17 15:15 | disposition home or self-care (01) | DRG 177 ==
LOC: M.ERS 11:17 → M.TBA-ER 13:25 → M.ORTHSURG 13:25 → M.2W 06-15 15:48 → M.3W 06-16 18:30
PROVIDERS: Emergency Medicine Emergency Medical Services; Family Medicine; ADMIT Internal Medicine; ATTEND Internal Medicine
DX: J15.6 Pneumonia due to other Gram-negative bacteria (principal); J96.01 Acute respiratory failure with hypoxia; Z20.822 Contact with and (suspected) exposure to COVID-19; E78.00 Pure hypercholesterolemia, unspecified; Z86.16 Personal history of COVID-19; E11.9 Type 2 diabetes mellitus without complications; Z98.42 Cataract extraction status, left eye; Z98.41 Cataract extraction status, right eye; Z88.0 Allergy status to penicillin; Z79.899 Other long term (current) drug therapy